=== PATIENT | female | born 1960 | race American Indian/Alaskan Native ===

== ENCOUNTER 2017-01-30 06:15 | Day surgery (SDC) | payer OTHER ==
[2017-01-30 07:17] VITALS: TEMP 97.9
[2017-01-30] MEDS ORDERED: Bupivacaine 0.5% Inj(30mL) ONE (07:31)
[2017-01-30 07:34] VITALS: BMI 44.2
[2017-01-30] MEDS ORDERED: Propofol 10 mg/ml Inj (20 ML) ONE (08:10)
[2017-01-30] MEDS ORDERED: Midazolam 2 MG/2 ML VIAL ONE (08:11)
[2017-01-30] MEDS ORDERED: Rocuronium 10 mg/ml (5 ml) ONE ×2 (08:21→09:49)
[2017-01-30] MEDS ORDERED: Succinylcholine 200 mg/10 ml Inj IV ONE (08:21)
[2017-01-30] MEDS ORDERED: Sevoflurane - Inhalation Anesthetic Liq (250 ml) ONE (08:26)
[2017-01-30] MEDS ORDERED: Phenylephrine 10 mg/ml Inj ONE (08:49)
[2017-01-30] MEDS ORDERED: Neostigmine Methylsulfate 3mg/3ml Syringe IV ONE (10:56)
--- NOTE | 2017-01-30 11:02 | PCM.SURG1 ---
Surgeon's Initial Post Op Note - Surgeon's Notes Surgeon: Saima Dairy Chemist: Iban Lezama PGY2, Brynn PGY1 Type of Anesthesia: General Endo, Local Pre-Operative Diagnosis: incisional hernia Operative Findings: incisional hernia w. incarcerated omentum Post-Operative Diagnosis: same Operation Performed: laparoscopic primary repair w. mesh Specimen/Specimens Removed: none Estimated Blood Loss: EBL {In ML}: 10 Blood Products Given: N/A Drains Used: No Drains Post-Op Condition: Good Date of Surgery/Procedure: 01/30/17 Time of Surgery/Procedure: 11:02
[2017-01-30] MEDS ORDERED: HYDROmorphone 0.5 mg/0.5 ml ISec IVP PRN (11:03)
[2017-01-30] MEDS ORDERED: Lactated Ringer's 1,000 ML IV SCH (11:15)
[2017-01-30] MEDS ORDERED: HYDROmorphone 0.5 mg/0.5 ml ISec ONE (11:41)
[2017-01-30 12:33] VITALS: RESP 18
[2017-01-30 13:46] VITALS: BP 128/72; PULSE 65; O2SAT 93
--- NOTE | 2017-02-02 13:31 | OP ---
PROCEDURE DATE: 01/30/2017 PREOPERATIVE DIAGNOSIS: Incarcerated incisional hernia. POSTOPERATIVE DIAGNOSIS: Incarcerated incisional hernia. PROCEDURE PERFORMED: Laparoscopic repair of incarcerated incisional hernia with mesh. SURGEON: Dr. Landaverde. ASSISTANTS: Dr. Almaguer, Dr. Swain and Dr. Ferrera. ANESTHESIOLOGIST: Dr. Candelario. ANESTHESIA: General endotracheal anesthesia. ESTIMATED BLOOD LOSS: Minimal. SPECIMEN: None. INDICATION: The patient is a 56-year-old female who had a history of a previous robotic hysterectomy for uterine cancer who subsequently developed a large hernia which is incarcerated, associated with tenderness and discomfort. The patient is also with significant obesity. The patient was brought in for repair of the hernia laparoscopically. DESCRIPTION OF PROCEDURE: The patient was brought to the operating room and placed on the operating table in supine position. The patient was connected to EKG, blood pressure and pulse oximeter monito rs. The patient then underwent general endotracheal anesthesia, was prepped and draped in usual ster ile fashion. First, timeout procedure took place and everybody in the room agreed as to the patient's identity, di agnosis and procedure to be performed. Dr. Almaguer, who was the engineer first assistant, was present during the entire case and was essential for exp editious and safe performance of this procedure. He was involved in all phases of this procedure in cluding incision through the laparoscopy and the closure of the wounds. First, using lidocaine with Marcaine, the left subcostal area was infiltrated in the mid clavicular l ine and carefully a small incision was made using #11 blade. Through the skin incision, the 12 mm po rt was placed with the camera within it and carefully advanced into the abdominal cavity under direct vision through the scope. The access through the abdominal cavity was obtained, the pneumoperitoneu m was obtained and a careful evaluation of abdomen was done. It appeared that there were dense adhes ions of the omentum to the anterior abdominal wall surrounding the hernia defect. I then proceeded w ith placing two 5 mm ports, one in the left lower quadrant and one in the left upper quadrant. I the n proceeded with careful dissection of the omental adhesions using Harmonic scalpel. Once detached f rom the edges of the hernia defect, omentum was pulled down and the content of the hernia were carefu lly teased out and detached from the overlying skin. Once the hernia was completely emptied, the def ect edges were identified and then a laparoscopic closure with V-Loc stitch was performed to reapprox imate the edges of the hernia transversely. Once the defect was completely closed, I then proceeded with placing a 20 x 12 cm oval patch of mesh, was attached to the abdominal wall using dissolvable ta ckers. Multiple rows of tackers were used in order to seal the mesh closely to the abdominal wall fa scia. Once this was completed, the abdominal cavity was carefully evaluated again. The port sites w ere evaluated and there was no bleeding noted. I then proceeded with release of the pneumoperitoneum and removal of the trocars and closure of the wounds using 0 Vicryl for the fascia, 3-0 Vicryl for s ubcutaneous tissue and 4-0 Monocryl for skin. A sterile Dermabond dressing was applied to the wound. A pressure dressing was applied over the hernia defect. The patient was also wrapped with a suppor t belt. The patient was then awakened, extubated and transferred to recovery room for further observ ation. Jadiel Landaverde MD cc: [id number] TT: 02/02/2017 13:30:55 daisy
== END 2017-01-30 15:15 | disposition home or self-care (01) ==
LOC: SDS 06:15
PROVIDERS: ATTEND General Practice
DX: K43.0 Incisional hernia with obstruction, without gangrene (principal); I10 Essential (primary) hypertension; E66.9 Obesity, unspecified; Z68.42 Body mass index [BMI] 45.0-49.9, adult; Z85.42 Personal history of malignant neoplasm of other parts of uterus
CPT/HCPCS: 49655; J0330; J0690; J1170; J2250; J2370; J2405; J2704; J2710; J3010; J7120 ×2

== ENCOUNTER 2017-04-12 11:14 | Observation (INO) | payer OTHER ==
[2017-04-12 11:14] VITALS: BMI 44.2
[2017-04-12] MEDS ORDERED: Sodium Chloride 0.9% 1,000 ML IV STA (11:52)
--- NOTE | 2017-04-12 11:57 | ED PDOC ---
Arrival/HPI - General Chief Complaint: Abdominal Pain Time Seen by Provider: 04/12/17 11:18 Historian: Patient - History of Present Illness Narrative History of Present Illness (Text): 04/12/17 11:54 56 year old female whose past medical history includes hysterectomy and hernia repair in january presents to the emergency department with right lower abdominal pain for the past 2 weeks. She states it has been constant and feels like a stabbing sensation. No relieving or exacerbating factors. No other complaints. Time/Duration: > week Symptom Onset: Gradual Symptom Course: Unchanged Quality: Stabbing Modifying Factors (Text): None Past Medical History - Provider Review Nursing Documentation Reviewed: Yes - Infectious Disease Hx of Infectious Diseases: None - Tetanus Immunization Tetanus Immunization: Unknown - Cardiac Hx Pacemaker: No - Pulmonary Hx Respiratory Disorders: No - Neurological Hx Paralysis: No - HEENT Hx HEENT Disorder: No - Renal Hx Renal Disorder: No - Endocrine/Metabolic Hx Endocrine Disorders: No - Hematological/Oncological Hx Blood Transfusions: Yes (2014) Hx Blood Transfusion Reaction: No - Integumentary Hx Dermatological Disorder: No - Musculoskeletal/Rheumatological Hx Musculoskeletal Disorders: Yes - Gastrointestinal Hx Gastrointestinal Disorders: No - Genitourinary/Gynecological Hx Genitourinary Disorders: No - Psychiatric Hx Emotional Abuse: No Hx Physical Abuse: No Hx Substance Use: No - Past Surgical History Past Surgical History: No Previous - Surgical History Hx Hysterectomy: Yes Hx Tubal Ligation: Yes - Anesthesia Hx Anesthesia: Yes Hx Anesthesia Reactions: No Hx Malignant Hyperthermia: No - Suicidal Assessment Feels Threatened In Home Enviroment: No Family/Social History - Physician Review Nursing Documentation Reviewed: Yes Family/Social History: Unknown Family HX Smoking Status: Never Smoked Hx Alcohol Use: No Hx Substance Use: No Hx Substance Use Treatment: No Allergies/Home Meds Allergies/Adverse Reactions: Allergies ibuprofen [From Motrin] Adverse Reaction (Verified 04/12/17 11:38) ITCHING iv dye Adverse Reaction (Uncoded 01/20/17 10:09) ITCHING Home Medications: Home Meds Medication Instructions Recorded Confirmed Folic Acid [Folic Acid] 1 mg PO DAILY 07/01/16 04/12/17 Furosemide [Lasix] 40 mg PO DAILY 09/05/16 04/12/17 Magnesium Oxide [Magnesium] 400 mg PO BID 09/05/16 04/12/17 traMADol [Ultram] 50 mg PO PRN PRN 09/05/16 04/12/17 Aspirin [Ecotrin] 81 mg PO DAILY 01/20/17 04/12/17 Ergocalciferol (Vitamin D2) 50,000 unit PO DIRK 01/20/17 04/12/17 [Vitamin D2] Valsartan [Diovan] 160 mg PO DAILY 01/20/17 04/12/17 Review of Systems - Physician Review All systems were reviewed & negative as marked: Yes Physical Exam - Physical Exam Narrative Physical Exam (Text): - Review of Systems Constitutional: Normal. absent: Fatigue, Weight Change, Fevers Eyes: Normal ENT: Normal Respiratory: Normal absent: SOB, Cough, Sputum Cardiovascular: Normal absent: Chest pain, Palpitations, Syncope Gastrointestinal: Abdominal pain absent: Diarrhea, Nausea, Vomiting Genitourinary: Normal. absent: Dysuria, Frequency, Hematuria Musculoskeletal: Normal. absent: Arthralgias, Back Pain, Neck Pain Skin: Normal Neurological: Normal absent: Focal Weakness Endocrine: Normal Hemo/Lymphatic: Normal Psychiatric: Normal - Physical exam Patient appears age appropriate, speaking full sentences without difficulty - Systems Exam Head: Present: Atraumatic, Normocephalic Pupils: Present: PERRL Extraocular Muscles: Present: EOMI Conjunctiva: Present: Normal Mouth: Present: Moist Mucous Membranes Neck: Present: Normal Range of Motion. No: MIDLINE TENDERNESS, Paraspinal Tenderness Respiratory/Chest: Present: Clear to Auscultation, Good Air Exchange. No: Respiratory Distress, Accessory Muscle Use, Tachypnic Cardiovascular: Present: Regular Rate and Rhythm, Normal S1, S2, Peripheral Pulses Present. No: Murmurs Abdomen: Present: Right lower quadrant tenderness to palpation, Normal Bowel Sounds No: Peritoneal Signs, Rebound, Guarding, Distention Back: Present: Normal Inspection. No: Midline Tenderness, Paraspinal Tenderness Upper Extremity: Present: Normal Inspection. No: Cyanosis, Edema Lower Extremity: Present: Normal Inspection. No: Edema Neurological: Present: GCS=15, Speech Normal, cranial nerves II through XII fully intact with no cerebellar abnormality, neuro-sensory fully intact. No focal neurological deficits. Skin: Present: Warm, Dry, Normal Color. No: Rashes Lymphatic: Present: OX3, NI, NC Psychiatric: Present: Alert, Oriented x 3, Normal Insight, Normal Concentration Vital Signs Reviewed: Yes Vital Signs Temp Pulse Resp BP Pulse Ox 05/28/17 14:10 75 18 116/75 98 04/12/17 13:04 79 18 121/71 98 04/12/17 11:46 98.9 F 86 18 118/79 98 04/12/17 11:33 98.9 F 86 19 118/79 98 Temperature: Afebrile Blood Pressure: Normal Pulse: Regular Respiratory Rate: Normal Appearance: Positive for: Well-Appearing, Non-Toxic Pain Distress: Mild Mental Status: Positive for: Alert and Oriented X 3 Medical Decision Making ED Course and Treatment: Impression: 56 year old female whose past medical history includes hysterectomy and hernia repair in january presents to the emergency department with right lower abdominal pain for the past 2 weeks. Denies any nausea, vomiting, diarrhea. Denies any symptoms. On physical exam, patient has right lower quadrant tenderness to palpation. Differential Diagnosis included but are not limited to: Constipation versus hernia versus appendicitis versus nonspecific abdominal pain Plan: -- CT Abdomen/Pelvis -- Toradol -- IV fluids -- Labs -- Reassess and disposition Prior Visits: Notes and results from previous visits were reviewed. Patient last seen in the ED on 09/05/16 for chronic hernia and abdominal pain and discharged home. On patient had laproscopic hernia repair. Progress Notes: PROCEDURE: CT Abdomen and Pelvis without intravenous contrast Special Service Officer : Shahid Black MD Report Date : 04/12/2017 14:02:24 IMPRESSION: No acute intra-abdominal findings 04/12/17 14:09 No acute findings on patient's CAT scan as per radiology read On reevaluation, patient reports that she feels much better and would like to be discharged home. Patient's repeat abdominal exam is soft, nontender, non distended with positive bowel sounds in all 4 quadrants and no peritoneal signs. Patient is tolerating PO without any difficulty. Pt states she understands to return to the ER right away for new or worsening symptoms or for inability to f/u with PMD or specialist as instructed. Patient states that she fully agrees with and understands discharge instructions. States that she agrees with the plan and disposition. Verbalized and repeated discharge instructions and plan. I have given the patient opportunity to ask any additional questions. - RAD Interpretation Radiology Orders: 04/12/17 11:53 ABD & PELVIS PO CONTRAST ONLY [CT] Stat Wire Stockkeeper: Radiologist - Medication Orders Current Medication Orders: Discontinued Medications Sodium Chloride (Sodium Chloride 0.9%) 1,000 mls @ 1,000 mls/hr IV .Q1H STA Stop: 04/12/17 12:51 Last Admin: 04/12/17 12:19 Dose: 1,000 mls/hr Famotidine (Pepcid 20mg/50ml Premix) 20 mg in 50 mls @ 100 mls/hr IV STAT STA Stop: 04/12/17 12:28 Last Admin: 04/12/17 12:17 Dose: 100 mls/hr Iohexol (Omnipaque 240 (50 Ml)) Confirm Administered Dose 50 ml .ROUTE .STK-MED ONE Stop: 04/12/17 12:06 Morphine Sulfate (Morphine) 4 mg IVP STAT STA Stop: 04/12/17 12:00 Last Admin: 04/12/17 12:18 Dose: 4 mg ED OBSERVATION Discharge: Yes Date of observation admission: 04/12/17 Time of observation admission: 11:55 - Observation admission statement Patient is being placed in observation because:: abdominal pain - Goals of Observation Goals of observation are:: monitor patient's response to treatments in the emergency room - Scribe Statement The provider has reviewed the documentation as recorded by the Naomy Holliday Provider Scribe Attestation: All medical record entries made by the Naomy were at my direction and personally dictated by me. I have reviewed the chart and agree that the record accurately reflects my personal performance of the history, physical exam, medical decision making, and the department course for this patient. I have also personally directed, reviewed, and agree with the discharge instructions and disposition. Disposition/Present on Arrival - Present on Arrival Any Indicators Present on Arrival: No History of DVT/PE: No History of Uncontrolled Diabetes: No Urinary Catheter: No History of Decub. Ulcer: No History Surgical Site Infection Following: None - Disposition Have Diagnosis and Disposition been Completed?: Yes Diagnosis: Abdominal pain Disposition: HOME/ ROUTINE Disposition Time: 11:55 Patient Plan: Discharge Patient Problems: Current Active Problems Problem Status Onset Abdominal pain Acute Condition: GOOD
[2017-04-12] MEDS ORDERED: Famotidine 20mg/50ml 20 MG/50 ML BAG IV STA (11:59)
[2017-04-12] MEDS ORDERED: Morphine 4 mg/ml ISec IVP STA (11:59)
[2017-04-12 12:03] VITALS: RESP 18; TEMP 98.9; O2SAT 98
[2017-04-12] MEDS ORDERED: Iohexol 240 (50 ml) ONE (12:05)
[2017-04-12 13:03] LABS: ADD MANUAL DIFF? NO
[2017-04-12 13:11] LABS: BASO # 0.02 K/mm3 (0.0-2.0); BASO % 0.3 % (0.0-3.0); EOS # 0.2 (0.0-0.7); EOS % 2.2 % (1.5-5.0); GRAN # 4.39 (1.4-6.5); HEMATOCRIT 34.8 % (36.0-48.0); LYMPH # 2.1 (1.2-3.4); LYMPH % 30.3 % (22.0-35.0); MEAN CELL VOLUME 79.6 fL (80.0-105.0); MEAN CORPUSCULAR HEMOGLOBIN 26.5 pg (25.0-35.0); MEAN CORPUSCULAR HGB CONC 33.3 g/dl (31.0-37.0); MEAN PLATELET VOLUME 8.7 fl (7.0-11.0); MONO # 0.3 (0.1-0.6); MONO % 4.2 % (1.0-6.0); PLATELET COUNT 208 10^3/uL (120.0-450.0); RED CELL DISTRIBUTION WIDTH 17.1 % (11.5-14.5)
[2017-04-12 13:14] LABS: URINE BILIRUBIN NEGATIVE (NEGATIVE); URINE BLOOD NEGATIVE (NEGATIVE); URINE GLUCOSE (UA) NEGATIVE (NEGATIVE); URINE KETONE NEGATIVE (NEGATIVE); URINE PROTEIN NEGATIVE mg/dL (<30 mg/dL); URINE UROBILINOGEN 0.2 E.U./dL (<1 E.U./dL)
[2017-04-12 13:19] LABS: ALB/GLOB RATIO 1.1 (1.1-1.8); ALKALINE PHOSPHATASE 105 U/L (38-133); ALT/SGPT 29 U/L (7-56); AST/SGOT 29 U/L (15-39); BILIRUBIN,TOTAL 0.4 mg/dL (0.2-1.3); BLOOD UREA NITROGEN 17 mg/dL (7-21); CALCIUM 9.4 mg/dL (8.4-10.5); CARBON DIOXIDE 29 mmol/L (21-33); CHLORIDE 99 mmol/L (98-107); GFR AFRICAN-AMERICAN > 60; GLUCOSE,RANDOM 104 mg/dL (70-110); LIPASE 72 U/L (23-300); POTASSIUM 4.3 mmol/L (3.6-5.0); SODIUM 137 mmol/L (132-148)
[2017-04-12 13:20] LABS: INR 1.01 (0.93-1.08); PARTIAL THROMBOPLASTIN TIME 30.1 Seconds (23.7-30.8)
[2017-04-12 13:23] LABS: URINE COLOR YELLOW (YELLOW)
[2017-04-12 13:24] LABS: URINE APPEARANCE CLEAR (CLEAR); URINE LEUKOCYTE ESTERASE NEGATIVE Leu/uL (NEGATIVE)
--- NOTE | 2017-04-12 14:04 | CT ---
PROCEDURE: CT Abdomen and Pelvis without intravenous contrast HISTORY: RLQ abd pain COMPARISON: 09/05/2016 TECHNIQUE: Without contrast.. Contrast Dose: Radiation dose: Total exam DLP = 1182 mGy-cm. This CT exam was performed using one or more of the following dose reduction techniques: Automated exposure control, adjustment of the mA and/or kV according to patient size, and/or use of iterative reconstruction technique. FINDINGS: LOWER THORAX: Unremarkable. LIVER: Unremarkable. No gross lesion or ductal dilatation. GALLBLADDER AND BILE DUCTS: Unremarkable. PANCREAS: Unremarkable. No gross lesion or ductal dilatation. SPLEEN: Unremarkable. ADRENALS: Unremarkable. No mass. KIDNEYS AND URETERS: Unremarkable. No hydronephrosis. No solid mass. VASCULATURE: Unremarkable. No aortic aneurysm. BOWEL: Unremarkable. No obstruction. No gross mural thickening. APPENDIX: Unremarkable. Normal appendix. PERITONEUM: Unremarkable. No free fluid. No free air. LYMPH NODES: Unremarkable. No enlarged lymph nodes. BLADDER: Unremarkable. REPRODUCTIVE: Unremarkable. BONES: No acute fracture. OTHER FINDINGS: There has been repair of the previously identified ventral hernia. There is some subcutaneous scarring at this location IMPRESSION: No acute intra-abdominal findings
[2017-04-12 14:19] VITALS: BP 116/75; PULSE 75
== END 2017-04-12 14:14 | disposition home or self-care (01) ==
LOC: ED 11:14 → EROBSV 11:54
PROVIDERS: ADMIT Emergency Medicine; ATTEND Emergency Medicine
DX: R10.31 Right lower quadrant pain (principal)
CPT/HCPCS: 36415; 74176; 80053; 81003; 83690; 85025; 85610; 85730; 96374; 99283; G0378; J2270; J7040; Q9966

== ENCOUNTER 2017-04-29 16:38 | Emergency (ER) | payer OTHER ==
[2017-04-29 16:39] VITALS: BMI 44.2
[2017-04-29 17:01] VITALS: BP 108/72; PULSE 90; TEMP 98.2
--- NOTE | 2017-04-29 17:26 | ED PDOC ---
Arrival/HPI - General Chief Complaint: Lower Extremity Problem/Injury Time Seen by Provider: 04/29/17 17:20 Historian: Patient - History of Present Illness Narrative History of Present Illness (Text): 04/29/17 17:23 56 y/o female, pmh including htn, allergic to motrin, c/o itching insect bite rash on the rt. leg and lt. hip x 2 days. Itching rash, no fever or chills, no dizziness, no numbness or tingling, no palpitation, no diarrhea, no other medical or psychological complaints. Past Medical History - Provider Review Nursing Documentation Reviewed: Yes - Infectious Disease Hx of Infectious Diseases: None - Tetanus Immunization Tetanus Immunization: Unknown - Cardiac Hx Hypertension: Yes Hx Pacemaker: No - Pulmonary Hx Respiratory Disorders: No - Neurological Hx Neurological Disorder: No Hx Paralysis: No - HEENT Hx HEENT Disorder: No - Renal Hx Renal Disorder: No - Endocrine/Metabolic Hx Endocrine Disorders: No - Hematological/Oncological Hx Blood Transfusions: Yes (2014) Hx Blood Transfusion Reaction: No - Integumentary Hx Dermatological Disorder: No - Musculoskeletal/Rheumatological Hx Musculoskeletal Disorders: Yes Other/Comment: USES CANE - Gastrointestinal Hx Gastrointestinal Disorders: No - Genitourinary/Gynecological Hx Genitourinary Disorders: No - Psychiatric Hx Emotional Abuse: No Hx Physical Abuse: No Hx Substance Use: No - Past Surgical History Past Surgical History: No Previous - Surgical History Hx Hysterectomy: Yes Hx Tubal Ligation: Yes - Anesthesia Hx Anesthesia: Yes - Suicidal Assessment Feels Threatened In Home Enviroment: No Family/Social History - Physician Review Nursing Documentation Reviewed: Yes Family/Social History: Unknown Family HX Smoking Status: Never Smoked Hx Alcohol Use: No Hx Substance Use: No Hx Substance Use Treatment: No Allergies/Home Meds Allergies/Adverse Reactions: Allergies ibuprofen [From Motrin] Adverse Reaction (Verified 04/29/17 16:53) ITCHING iv dye Adverse Reaction (Uncoded 04/29/17 16:53) ITCHING Home Medications: Home Meds Medication Instructions Recorded Confirmed Folic Acid [Folic Acid] 1 mg PO DAILY 07/01/16 04/29/17 Magnesium Oxide [Magnesium] 400 mg PO BID 09/05/16 04/29/17 traMADol [Ultram] 50 mg PO PRN PRN 09/05/16 04/29/17 Aspirin [Ecotrin] 81 mg PO DAILY 01/20/17 04/29/17 Ergocalciferol (Vitamin D2) 50,000 unit PO DIRK 01/20/17 04/29/17 [Vitamin D2] Valsartan [Diovan] 160 mg PO DAILY 01/20/17 04/29/17 Review of Systems - Review of Systems Constitutional: absent: Fatigue, Fevers Eyes: absent: Vision Changes ENT: absent: Hearing Changes Respiratory: absent: SOB, Cough Cardiovascular: absent: Chest Pain Gastrointestinal: absent: Abdominal Pain Genitourinary Female: absent: Dysuria Skin: Rash, Pruritis. absent: Skin Lesions, Laceration Neurological: absent: Headache, Dizziness Psychiatric: absent: Anxiety, Depression, Suicidal Ideation Physical Exam Vital Signs Reviewed: Yes Vital Signs Temp Pulse Resp BP Pulse Ox 04/29/17 17:19 98.2 F 90 16 108/72 97 04/29/17 16:55 98.2 F 90 16 108/72 97 Temperature: Afebrile Blood Pressure: Normal Pulse: Regular Respiratory Rate: Normal Appearance: Positive for: Well-Appearing, Non-Toxic, Comfortable Pain Distress: Mild Mental Status: Positive for: Alert and Oriented X 3 - Systems Exam Head: Present: Atraumatic, Normocephalic Pupils: Present: PERRL Extroacular Muscles: Present: EOMI Conjunctiva: Present: Normal Mouth: Present: Moist Mucous Membranes Neck: Present: Normal Range of Motion Respiratory/Chest: Present: Clear to Auscultation, Good Air Exchange. No: Respiratory Distress, Accessory Muscle Use Cardiovascular: Present: Regular Rate and Rhythm, Normal S1, S2. No: Murmurs Abdomen: Present: Normal Bowel Sounds. No: Tenderness, Distention, Peritoneal Signs Back: Present: Normal Inspection Upper Extremity: Present: Normal Inspection. No: Cyanosis, Edema Lower Extremity: Present: Normal Inspection. No: Edema Neurological: Present: GCS=15, Speech Normal Skin: Present: Warm, Dry, Rashes (Visible scattered central insect bite ney hives noted on the rt. posterior calf and lt. hip region, no bullseye or target signs, mild celluitis noted with no streaking, no ulcers. ), Normal Color Psychiatric: Present: Alert, Oriented x 3, Normal Insight, Normal Concentration Medical Decision Making ED Course and Treatment: 04/29/17 17:26 -Discharge home with zyrtec, topical steroid cream, keflex, follow up with your own pmd and road driver within 2 days, keep the skin cool and dry, spray insect repellent when going to the park/flower/garden, return to the ER for any new or worsening signs or symptoms. - PA / [employer]PERVIS[employer] / Resident Statement MD/ has reviewed & agrees with the documentation as recorded. Disposition/Present on Arrival - Present on Arrival Any Indicators Present on Arrival: No History of DVT/PE: No History of Uncontrolled Diabetes: No Urinary Catheter: No History of Decub. Ulcer: No History Surgical Site Infection Following: None - Disposition Have Diagnosis and Disposition been Completed?: Yes Diagnosis: Insect bite, Cellulitis Disposition: HOME/ ROUTINE Disposition Time: 17:27 Patient Plan: Discharge Condition: GOOD Discharge Instructions (ExitCare): Cellulitis (ED) Additional Instructions: Discharge home with zyrtec, topical steroid cream, keflex, follow up with your own pmd and road driver within 2 days, keep the skin cool and dry, spray insect repellent when going to the park/flower/garden, return to the ER for any new or worsening signs or symptoms. Prescriptions: Cephalexin [Keflex] 500 mg PO QID #28 capsule Cetirizine HCl [Zyrtec Allergy] 10 mg PO DAILY #10 sgl Triamcinolone 0.025 % [Triamcinolone 0.025 % Cream] 1 appl TOP BID #30 g Referrals: Zoya Pino APN[facility] [Primary Care Provider] - Follow up with primary Sinan Kramer MD [Staff Provider] - Follow up with primary Forms: WORK NOTE
[2017-04-29 17:37] VITALS: RESP 18; O2SAT 99
== END 2017-04-29 17:37 | disposition home or self-care (01) ==
LOC: ED 16:38
DX: S80.861A Insect bite (nonvenomous), right lower leg, initial encounter (principal); L03.115 Cellulitis of right lower limb; W57.XXXA Bitten or stung by nonvenomous insect and other nonvenomous arthropods, initial encounter

== ENCOUNTER 2018-11-22 17:23 | Outpatient (CLI) | payer BC | END 2018-11-22 17:24 | disposition home or self-care (01) | LOC: RAD 17:23 ==